=== PATIENT | male | born 1945 | race Caucasian/White ===

== ENCOUNTER 2017-10-04 10:11 | Emergency (ER) | payer OTHER ==
[2017-10-04 10:50] LABS: Absolute Lymphocytes (CBC) 1.5 K/uL (0.7-4.9); Absolute Monocytes 0.5 K/uL (0.1-1.3); Absolute Neutrophil 3.5 K/uL (1.8-8.0); Basophils % 1.4 % (0-1.3); Eosinophils % 6.2 % (0-4.4); Hematocrit 48.6 % (39.6-49.0); Lymphocytes % 24.8 % (15.3-44.8); MCH 30.8 pg (27.0-35.0); MCV 92.8 fL (80-100); MPV 6.6 fL (7.6-11.3); Monocytes % 8.7 % (3.3-12.3); RBC Red Blood Cell Count 5.24 M/uL (4.33-5.43)
[2017-10-04 11:06] LABS: Protime INR 0.95
--- NOTE | 2017-10-04 11:07 | RAD REPORT ---
EXAM DESCRIPTION: RAD - Chest Single View - 10/04/2017 11:00 am CLINICAL HISTORY: Chest pain. COMPARISON: 06/12/2014 FINDINGS: Portable technique limits examination quality. The lungs are grossly clear. The heart is normal in size. No displaced fractures. IMPRESSION: No acute intrathoracic process suspected.
[2017-10-04 11:13] LABS: Potassium 3.6 mEq/L (3.6-5.0)
[2017-10-04 11:45] LABS: Urine Blood NEGATIVE (NEG); Urine Glucose NEGATIVE (NEG); Urine Protein NEGATIVE (NEG); Urine Specific Gravity 1.015 (1.005-1.030); Urine pH 7.5 (5.0-7.0)
[2017-10-04] MEDS ORDERED: METOPROLOL TARTRATE 5 MG/5 ML INJ IV ONE (11:48)
--- NOTE | 2017-10-04 12:26 | EKG ---
Test Date: 2017-10-04 Test Time: 10:21:41 Weapons Officer: AMPARO MEASUREMENT RESULTS: Intervals: Rate: 83 CT: 160 QRSD: 110 QT: 370 QTc: 434 [place]: P: 22 CT: 160 QRS: -36 T: 27 INTERPRETIVE STATEMENTS: Normal sinus rhythm Left axis deviation Abnormal ECG Compared to ECG 09/25/2009 11:04:04 Left-axis deviation now present Sinus tachycardia no longer present Electronically Signed On 10-04-17 12:25:37 CDT by Kyle Peralta
[2017-10-04] MEDS ORDERED: BUPIVACAINE 0.5% PF 10 ML VIAL ONE (12:50)
--- NOTE | 2017-10-04 13:42 | EDPHYS ---
Physician Documentation [facility] Name: Alvarez Etienne II Age: 72 yrs Sex: Male : 1945 Arrival Date: 10/04/2017 Time: 10:13 Bed 6 Private MD: Bhanu Verde ED Physician Trey Lopez HPI: 10/04 13:39 This 72 yrs old Male presents to ER via Ambulatory with complaints of gs Numbness Of Arm. 13:39 The patient or guardian complains of pain, that is acute. The complaints affect the gs anterior aspect of left shoulder. Onset: The symptoms/episode began/occurred gradually, today. Modifying factors: the symptoms are aggravated by movement. Associated signs and symptoms: Pertinent positives: tingling, of the palmar aspect of distal phalanx of left index finger, palmar aspect of middle phalanx of left index finger, palmar aspect of proximal phalanx of left index finger, palmar aspect of distal phalanx of left thumb and palmar aspect of proximal phalanx of left thumb. Severity of symptoms: At their worst the symptoms were moderate, in the emergency department the symptoms are unchanged. The patient has experienced similar episodes in the past, a few times. Historical: - Allergies: 10:22 PENICILLINS; tw2 10:22 Sulfa (Sulfonamide Antibiotics); tw2 10:22 Codeine; tw2 - Home Meds: 10:22 tamsulosin 0.4 mg oral cp24 1 cap once daily [Active]; lisinopril 20 mg Oral tab 1 tab tw2 once daily [Active]; clopidogrel 75 mg oral tab 1 tab once daily [Active]; amlodipine 5 mg tab 1 tab once daily [Active]; dorzolamide 2 % ophthalmic drop 1 drop 3 times per day [Active]; latanoprost 0.005 % ophthalmic drop 1 drop once daily [Active]; - PSHx: 10:22 Cholecystectomy; Stomach banded in 80's; Ganglia cysts; pyrinodial cyst; tw2 - Immunization history:: Adult Immunizations up to date. - Social history:: Smoking status: Patient/guardian denies using tobacco. ROS: 13:39 Respiratory: Negative for shortness of breath. gs 13:39 All other systems are negative. Exam: 13:39 Head/Face: Normocephalic, atraumatic. Eyes: Pupils equal round and reactive to light, gs extra-ocular motions intact. Lids and lashes normal. Conjunctiva and sclera are non-icteric and not injected. Cornea within normal limits. Periorbital areas with no swelling, redness, or edema. ENT: Nares patent. No nasal discharge, no septal abnormalities noted. Tympanic membranes are normal and external auditory canals are clear. Oropharynx with no redness, swelling, or masses, exudates, or evidence of obstruction, uvula midline. Mucous membranes moist. Neck: Trachea midline, no thyromegaly or masses palpated, and no cervical lymphadenopathy. Supple, full range of motion without nuchal rigidity, or vertebral point tenderness. No Meningismus. Chest/axilla: Normal chest wall appearance and motion. Nontender with no deformity. No lesions are appreciated. Cardiovascular: Regular rate and rhythm with a normal S1 and S2. No gallops, murmurs, or rubs. Normal PMI, no JVD. No pulse deficits. Respiratory: Lungs have equal breath sounds bilaterally, clear to auscultation and percussion. No rales, rhonchi or wheezes noted. No increased work of breathing, no retractions or nasal flaring. Abdomen/GI: Soft, non-tender, with normal bowel sounds. No distension or tympany. No guarding or rebound. No evidence of tenderness throughout. Back: No spinal tenderness. No costovertebral tenderness. Full range of motion. Skin: Warm, dry with normal turgor. Normal color with no rashes, no lesions, and no evidence of cellulitis. MS/ Extremity: Pulses equal, no cyanosis. Neurovascular intact. Full, normal range of motion. Neuro: Awake and alert, GCS 15, oriented to person, place, time, and situation. Cranial nerves II-XII grossly intact. Motor strength 5/5 in all extremities. Sensory grossly intact. Cerebellar exam normal. Normal gait. 13:39 Constitutional: The patient appears alert, awake. 13:39 ECG was reviewed by the Attending Physician. 13:39 Neuro: Sensation: pin prick testing is normal. Vital Signs: 10:19 BP 176 / 109; Pulse 90; Resp 18; Temp 98.1(O); Pulse Ox 98% on R/A; Weight 97.52 kg tw2 (R); Height 5 ft. 11 in. (180.34 cm); Pain /; 11:44 BP 163 / 111; Pulse 84; Resp 15; Pulse Ox 96% on R/A; ae1 11:53 BP 157 / 98; Pulse 67; Resp 14; Pulse Ox 97% on R/A; ae1 12:45 BP 155 / 96; Pulse 60; Resp 18; Pulse Ox 96% on R/A; aj1 13:29 BP 155 / 100; Pulse 68; Resp 18; Pulse Ox 94% on R/A; aj1 14:10 BP 142 / 101; Pulse 76; Resp 18; Pulse Ox 97% on R/A; aj1 10:19 Body Mass Index 29.99 (97.52 kg, 180.34 cm) tw2 MDM: 10:37 Patient medically screened. 13:39 Differential diagnosis: dislocation, tendonitis, cad. Data reviewed: vital signs, nurses notes. Response to treatment: the patient's symptoms have markedly improved after treatment, and as a result, I will discharge patient. 10/04 10:39 Order name: Basic Metabolic Panel; Complete Time: 11:14 10/04 10:39 Order name: BNP; Complete Time: 11:50 10/04 10:39 Order name: CBC with Diff; Complete Time: 11:14 10/04 10:39 Order name: PT-INR; Complete Time: 11:14 10/04 10:39 Order name: Troponin (emerg Dept Use Only); Complete Time: 11:50 10/04 11:11 Order name: Urine Dipstick--Ancillary (enter results); Complete Time: 11:50 10/04 10:39 Order name: XRAY Chest (1 view); Complete Time: 11:14 10/04 10:39 Order name: EKG; Complete Time: 10:39 10/04 10:39 Order name: Cardiac monitoring; Complete Time: 10:57 10/04 10:39 Order name: EKG - Nurse/Tech; Complete Time: 10:57 10/04 10:39 Order name: IV Saline Lock; Complete Time: 10:57 10/04 10:39 Order name: Labs collected and sent; Complete Time: 10:57 10/04 12:16 Order name: Troponin (emerg Dept Use Only); Complete Time: 13:37 10/04 10:39 Order name: O2 Per Protocol; Complete Time: 57 gs 10/04 10:39 Order name: O2 Sat Monitoring; Complete Time: : gs EC:39 Rate is 83 beats/min. Rhythm is regular. MO interval is normal. QRS interval is gs prolonged. T waves are Normal. No ST changes noted. Clinical impression: Abnormal EKG without significant change. Interpreted by me. Administered Medications: 11:45 Drug: Lopressor 5 mg Route: IVP; Site: right antecubital; ae1 11:52 Follow up: Response: Blood pressure is lowered; 157/98 from 170/115 ae1 Disposition: 10/04/17 13:41 Discharged to Home. Impression: Other spondylosis with radiculopathy, cervical region. - Condition is Stable. - Discharge Instructions: Cervical Radiculopathy. - Medication Reconciliation Form, Thank You Letter, Antibiotic Education, Prescription Opioid Use form. - Follow up: Private Physician; When: 2 - 3 days; Reason: Re-evaluation by your physician. Signatures: Dispatcher [employer] EDMS Rachael Nagy RN RN aj1 Roxanne Ba RN RN tw2 Bradley Menard RN RN ae1 Trey Lopez MD MD Corrections: (The following items were deleted from the chart) 14:29 13:41 10/04/2017 13:41 Discharged to Home. Impression: Other spondylosis with aj1 radiculopathy, cervical region. Condition is Stable. Forms are Medication Reconciliation Form, Thank You Letter, Antibiotic Education, Prescription Opioid Use. Follow up: Private Physician; When: 2 - 3 days; Reason: Re-evaluation by your physician. gs
--- NOTE | 2017-10-04 13:42 | ER ---
Nurse's Notes [facility] Name: Alvarez Etienne II Age: 72 yrs Sex: Male : 1945 Arrival Date: 10/04/2017 Time: 10:13 Bed 6 Private MD: Bhanu Verde Diagnosis: Other spondylosis with radiculopathy, cervical region Presentation: 10/04 10:18 Presenting complaint: Patient states: about 840 my left shoulder started hurting and tw2 numbness and tingling in my left arm and my face started feeling funny on the left side. Transition of care: patient was not received from another setting of care. Onset of symptoms was October 04, 2017 at 08:30. Risk Assessment: Do you want to hurt yourself or someone else? Patient reports no desire to harm self or others. Initial Sepsis Screen: Does the patient meet any 2 criteria? No. Patient's initial sepsis screen is negative. Does the patient have a suspected source of infection? No. Patient's initial sepsis screen is negative. Care prior to arrival: None. 10:18 Method Of Arrival: Ambulatory tw2 10:18 Acuity: JASON 3 tw2 Historical: - Allergies: 10:22 PENICILLINS; tw2 10:22 Sulfa (Sulfonamide Antibiotics); tw2 10:22 Codeine; tw2 - Home Meds: 10:22 tamsulosin 0.4 mg oral cp24 1 cap once daily [Active]; lisinopril 20 mg Oral tab 1 tab tw2 once daily [Active]; clopidogrel 75 mg oral tab 1 tab once daily [Active]; amlodipine 5 mg tab 1 tab once daily [Active]; dorzolamide 2 % ophthalmic drop 1 drop 3 times per day [Active]; latanoprost 0.005 % ophthalmic drop 1 drop once daily [Active]; - PSHx: 10:22 Cholecystectomy; Stomach banded in 80's; Ganglia cysts; pyrinodial cyst; tw2 - Immunization history:: Adult Immunizations up to date. - Social history:: Smoking status: Patient/guardian denies using tobacco. Screenin:15 Abuse screen: Denies threats or abuse. Denies injuries from another. Nutritional aj1 screening: No deficits noted. Tuberculosis screening: No symptoms or risk factors identified. 14:28 Fall Risk None identified. aj1 Assessment: 10:15 General: Appears in no apparent distress. comfortable, Behavior is calm, cooperative, aj1 appropriate for age. Pain: Complains of pain in left jaw, anterior aspect of left shoulder, posterior aspect of left shoulder and neck Pain does not radiate. Pain currently is 0 out of 10 on a pain scale. at worst was 3 out of 10 on a pain scale. Quality of pain is described as aching, Pain began 30 min ago. Neuro: Level of Consciousness is awake, alert, obeys commands, Oriented to person, place, time, situation, Pipe Finisher are equal bilaterally Moves all extremities. Full function Speech is normal, Facial symmetry appears normal, Pupils are PERRLA, Tingling in left hand Reports tingling in left hand. Cardiovascular: Denies chest pain, palpitations, shortness of breath, Heart tones S1 S2 present Patient's skin is warm and dry. Rhythm is sinus rhythm. Respiratory: Airway is patent Respiratory effort is even, unlabored, Respiratory pattern is regular, symmetrical, Breath sounds are clear bilaterally. GI: No signs and/or symptoms were reported involving the gastrointestinal system. : No signs and/or symptoms were reported regarding the genitourinary system. EENT: No signs and/or symptoms were reported regarding the EENT system. Derm: No signs and/or symptoms reported regarding the dermatologic system. Skin is pink, warm \\T\\ dry. normal. Musculoskeletal: No signs and/or symptoms reported regarding the musculoskeletal system. Circulation, motion, and sensation intact. 11:53 Reassessment: Patient appears in no apparent distress at this time. Patient and/or ae1 family updated on plan of care and expected duration. Pain level reassessed. When asked about his shoulder pain, and numbness, patient states "it's not aching like it was." Patient states feeling better. Patient states symptoms have improved. 12:50 Reassessment: Patient appears in no apparent distress at this time. No changes from aj1 previously documented assessment. Patient and/or family updated on plan of care and expected duration. Pain level reassessed. Patient is alert, oriented x 3, equal unlabored respirations, skin warm/dry/pink. 13:28 Reassessment: Patient appears in no apparent distress at this time. No changes from aj1 previously documented assessment. Patient and/or family updated on plan of care and expected duration. Pain level reassessed. Patient is alert, oriented x 3, equal unlabored respirations, skin warm/dry/pink. 14:10 Reassessment: Patient appears in no apparent distress at this time. No changes from aj1 previously documented assessment. Patient and/or family updated on plan of care and expected duration. Pain level reassessed. Patient is alert, oriented x 3, equal unlabored respirations, skin warm/dry/pink. Vital Signs: 10:19 BP 176 / 109; Pulse 90; Resp 18; Temp 98.1(O); Pulse Ox 98% on R/A; Weight 97.52 kg tw2 (R); Height 5 ft. 11 in. (180.34 cm); Pain /10; 11:44 BP 163 / 111; Pulse 84; Resp 15; Pulse Ox 96% on R/A; ae1 11:53 BP 157 / 98; Pulse 67; Resp 14; Pulse Ox 97% on R/A; ae1 12:45 BP 155 / 96; Pulse 60; Resp 18; Pulse Ox 96% on R/A; aj1 13:29 BP 155 / 100; Pulse 68; Resp 18; Pulse Ox 94% on R/A; aj1 14:10 BP 142 / 101; Pulse 76; Resp 18; Pulse Ox 97% on R/A; aj1 10:19 Body Mass Index 29.99 (97.52 kg, 180.34 cm) tw2 ED Course: 10:13 Patient arrived in ED. mr 10:13 Bhanu Verde MD is Private Physician. mr 10:15 Patient has correct armband on for positive identification. Bed in low position. Call aj1 light in reach. environmental monitoring technician on. Pulse ox on. NIBP on. 10:15 No provider procedures requiring assistance completed. aj1 10:19 Triage completed. tw2 10:19 Arm band placed on. tw2 10:23 Trey Lopez MD is Attending Physician. gs 10:30 Inserted saline lock: 20 gauge in right antecubital area, using aseptic technique. ag Blood collected. 11:00 X-ray completed. Portable x-ray completed in exam room. Patient tolerated procedure ag1 well. 11:00 XRAY Chest (1 view) In Process Unspecified. EDMS 11:47 Rachael Nagy, SAMUEL is Primary Nurse. aj1 13:03 Troponin (emerg Dept Use Only) Sent. 14:28 IV discontinued, intact, bleeding controlled, No redness/swelling at site. Pressure aj1 dressing applied. Administered Medications: 11:45 Drug: Lopressor 5 mg Route: IVP; Site: right antecubital; ae1 11:52 Follow up: Response: Blood pressure is lowered; 157/98 from 170/115 ae1 Intake: Outcome: 13:41 Discharge ordered by . ingrid 14:19 Discharged to home ambulatory. aj1 14:19 Condition: good 14:19 Discharge instructions given to patient, Instructed on discharge instructions, follow up and referral plans. Demonstrated understanding of instructions, follow-up care. 14:29 Patient left the ED. aj1 Signatures: Dispatcher [employer] EDMS Rachael Nagy, RN RN aj1 Katrin Westfallardo, Sarah Wong 1 Roxanne Ba RN RN tw2 Bradley Menard RN RN ae1 Trey Lopez MD MD
== END 2017-10-04 14:29 | disposition home or self-care (01) ==
LOC: ER 10:11
DX: M47.22 Other spondylosis with radiculopathy, cervical region (principal); Z88.0 Allergy status to penicillin; Z88.2 Allergy status to sulfonamides; Z88.5 Allergy status to narcotic agent
CPT/HCPCS: 36415; 71045; 80048; 81003; 83880; 84484; 85025; 85610; 93005; 96374; 99284